=== PATIENT | female | born 1935 | race Caucasian/White ===

== ENCOUNTER 2022-09-26 19:44 | Emergency (ER) | payer MEDICARE, OTHER ==
[~2022-09-26] VITALS: Ht 144.8 cm; Wt 65.5 kg
[2022-09-26 19:45] VITALS: BP 164/80; TEMP 98.8; O2SAT 95
[2022-09-26] MEDS ORDERED: ACETAMINOPHEN TAB 650MG DOSE (2X325MG) PO ONE (22:25)
[2022-09-26] MEDS ORDERED: ACETAMINOPHEN 325 MG TAB As Ordered ONE (22:27)
[2022-09-26] MEDS ORDERED: LIDOCAINE 1% MDV 20ML VIAL SC ONE (22:30)
[2022-09-27] MEDS ORDERED: DOXY-443 PO (00:37)
== END 2022-09-27 00:50 | disposition home or self-care (01) ==
LOC: M ED 19:44
DX: S51.812A Laceration without foreign body of left forearm, initial encounter (principal); S61.213A Laceration without foreign body of left middle finger without damage to nail, initial encounter; S52.502A Unspecified fracture of the lower end of left radius, initial encounter for closed fracture; W10.8XXA Fall (on) (from) other stairs and steps, initial encounter; Y92.009 Unspecified place in unspecified non-institutional (private) residence as the place of occurrence of the external cause; I25.2 Old myocardial infarction; I10 Essential (primary) hypertension; E78.5 Hyperlipidemia, unspecified; K21.9 Gastro-esophageal reflux disease without esophagitis; J44.9 Chronic obstructive pulmonary disease, unspecified; Z88.0 Allergy status to penicillin; Z88.2 Allergy status to sulfonamides

== ENCOUNTER → 2022-11-26 | Outpatient (CLI) | payer MEDICARE, OTHER ==
[~2022-11-26] MED LIST: DOXY-443 PO
== END ==
LOC: M SOG 08:10
PROVIDERS: ATTEND Orthopaedic Surgery
DX: S60.212D Contusion of left wrist, subsequent encounter (principal); Y93.9 Activity, unspecified; Y92.9 Unspecified place or not applicable